=== PATIENT | male | born 1990 ===

== ENCOUNTER 2017-12-16 09:33 | Emergency (ER) | payer OTHER ==
[2017-12-16 09:46] VITALS: BP 117/78; PULSE 76; RESP 18; TEMP 98.5; O2SAT 96
--- NOTE | 2017-12-16 09:53 | C.PDOC ---
History Of Present Illness 27 year old male presents to ED for left eyebrow suture removal. Patient states he had sutures placed 1 week ago in [place]. Denies fever, redness, or any other associated symptoms at this time. Time Seen by Provider: 12/16/17 09:47 Chief Complaint (Nursing): Suture/Staple Removal History Per: Patient History/Exam Limitations: no limitations Onset/Duration Of Symptoms: Days Ago Current Symptoms Are (Timing): Still Present Location Of Injury: Left: Face Quality Of Symptoms: denies: Painful, Itching, Swollen Recent travel outside of the [place]: No Additional History Per: Patient Past Medical History Reviewed: Historical Data, Nursing Documentation, Vital Signs Vital Signs: Last Vital Signs Temp 98.5 F 12/16/17 09:44 Pulse 76 12/16/17 09:44 Resp 18 12/16/17 10:00 BP 117/78 12/16/17 09:44 Pulse Ox 96 12/16/17 10:18 - Medical History PMH: Denies: Diabetes, Hepatitis, HIV, HTN, Seizures, Sexually Transmitted Disease Family History: States: Unknown Family Hx - Social History Hx Tobacco Use: No Hx Alcohol Use: No Hx Substance Use: No - Immunization History Hx Tetanus Toxoid Vaccination: Yes Hx Influenza Vaccination: No Hx Pneumococcal Vaccination: No Review Of Systems Except As Marked, All Systems Reviewed And Found Negative. Constitutional: Negative for: Fever, Chills Skin: Positive for: Other (suture removal) Physical Exam - Physical Exam Appears: Non-toxic, No Acute Distress Skin: Warm, Dry, Other (3 sutures intact on left eyebrow, no signs of infection) Head: Atraumatic, Normacephalic Eye(s): bilateral: Normal Inspection Neck: Normal ROM Extremity: Bilateral: Atraumatic, Normal ROM Neurological/Psych: Oriented x3, Normal Speech ED Course And Treatment O2 Sat by Pulse Oximetry: 96 (RA) Pulse Ox Interpretation: Normal Medical Decision Making Medical Decision Makin sutures removed from left eyebrow without difficulty. Patient tolerated well, no immediate complications. Skin is well healed. Patient is instructed to follow up with PMD. 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 - Scribe Statement The provider has reviewed the documentation as recorded by the Scribe Juan Carlos Duncan All medical record entries made by the Scribe were at my direction and personally dictated by me. I have reviewed the chart and agree that the record accurately reflects my personal performance of the history, physical exam, medical decision making, and the department course for this patient. I have also personally directed, reviewed, and agree with the discharge instructions and disposition.
== END 2017-12-16 10:00 | disposition home or self-care (01) ==
LOC: C.ER 09:33
DX: Z48.02 Encounter for removal of sutures (principal)